=== PATIENT | female | born 1945 | race Caucasian/White ===

== ENCOUNTER 2025-04-14 10:05 | Emergency (ER) | payer MEDICARE, BC ==
[~2025-04-14] VITALS: Ht 157.5 cm; Wt 41.7 kg
[2025-04-14 11:01] LABS: PLATELET COUNT (AUTO) 312 K/uL (150-450); RED BLOOD CELL COUNT(AUTO) 4.30 MIL/uL (4.0-5.2); RED CELL DISTRIBUTION WIDTH 15.4 % (11.5-15.0); WHITE BLOOD COUNT (AUTO) 7.6 K/uL (4.3-11.0)
[2025-04-14 11:08] LABS: CALCIUM, SERUM 9.4 mg/dL (8.5-10.1); CREATININE 0.4 mg/dL (0.6-1.3); SODIUM SERUM 143.0 mmol/L (136-145); UREA NITROGEN, BLOOD 26.0 mg/dL (7-18)
[2025-04-14 11:17] LABS: INR 1.0 (0.91-1.10)
[2025-04-14 12:19] VITALS: BP 119/71; TEMP 98; O2SAT 97
== END 2025-04-14 12:20 ==
LOC: ER 10:36
DX: K06.8 Other specified disorders of gingiva and edentulous alveolar ridge (principal); I11.9 Hypertensive heart disease without heart failure; E78.5 Hyperlipidemia, unspecified; J44.9 Chronic obstructive pulmonary disease, unspecified; M81.0 Age-related osteoporosis without current pathological fracture; Z79.01 Long term (current) use of anticoagulants; Z86.718 Personal history of other venous thrombosis and embolism; Z86.73 Personal history of transient ischemic attack (TIA), and cerebral infarction without residual deficits; Z88.0 Allergy status to penicillin; Z88.6 Allergy status to analgesic agent
CPT/HCPCS: 36415; 80048-TC; 85025-TC; 85730-TC; 86850-TC